=== PATIENT | female | born 1960 | race Caucasian/White ===

== ENCOUNTER 2021-08-26 11:35 | Emergency (ER) | payer OTHER, SELFPAY ==
--- NOTE | ~2021-08-26 | XR_ITS ---
EXAMINATION: XR chest 2V DATE: 08/26/2021 12:35 INDICATION: Cough, COVID 19 positive TECHNIQUE: PA and lateral views of the chest are obtained. COMPARISON: None available FINDINGS: There are minimal airspace opacities of the lung bases. There is no pleural effusion or pne umothorax. The cardiomediastinal silhouette is normal. There is moderate thoracic spondylosis. IMPRESSION: 1. Minimal bibasilar airspace opacities, consistent with atelectasis versus pneumonia. Reviewed, dictated and finalized at location [facility]. [facility] [employer] IMPRESSION: 1. Minimal bibasilar airspace opacities, consistent with atelectasis versus pne umonia.
[2021-08-26 11:44] VITALS: BP 129/72; PULSE 76; RESP 14; TEMP 36.1; O2SAT 99
--- NOTE | 2021-08-26 12:21 | ED.GENADULT ---
HPI - General Adult General Chief complaint: Upper Respiratory Infection Stated complaint: tested positive covid needs checked Time Seen by Provider: 08/26/21 12:22 Source: patient Mode of arrival: ambulatory Limitations: no limitations History of Present Illness HPI narrative: 61-year-old female patient presents to the [facility] with complaints of some chest pain when she takes a deep breath and when coughing for the past 2 to 3 days. Patient was diagnosed with Covid a week ago and started having symptoms 9 days ago. Tomorrow is her last day of quarantine. Patient states she is just been taking some [id number] medication for cough. Does have history of lupus but states she is in remission. Patient states she is not vaccinated against Covid. Related Data Home Medications Medication Instructions Recorded Confirmed ergocalciferol (vitamin D2) 1,250 mcg PO WEEKLY 08/26/21 08/26/21 [Vitamin D2] valacyclovir 1,000 mg PO DAILY PRN 08/26/21 08/26/21 Allergies Allergy/AdvReac Type Severity Reaction Status Date / Time Sulfa (Sulfonamide Allergy Rash Verified 08/26/21 11:54 Antibiotics) Review of Systems Review of Systems: CONSTITUTIONAL: Denies fever, chills, or sweats. EYES: Denies visual changes, redness, or discharge. ENT: Denies rhinorrhea, congestion, sore throat, or otalgia. CARDIOVASCULAR: Denies chest pain, palpitations, or edema. RESPIRATORY: Positive nonproductive cough, denies dyspnea. Positive chest pain midsternal when taking a breath in or when coughing. GASTROINTESTINAL: Denies abdominal pain, nausea, vomiting, or diarrhea. GENITOURINARY: Denies dysuria or hematuria. SKIN: Denies rash or itching. MUSCULOSKELETAL: Denies back pain, joint pain, or myalgia. NEUROLOGIC: Denies headache, numbness, or weakness. PSYCHIATRIC: Denies anxiety or depression. [facility] Past Medical History Medical History (Updated 08/26/21 @ 12:49 by OJSE Sal) Lupus Surgical History Surgical History (Updated 08/26/21 @ 12:23 by JOSE Sal) H/O: hysterectomy History of bunionectomy History of tonsillectomy Comments At the time of my signature I agree with nursing past medical history, surgical, social, and family history. There is no relevant family history pertinent to the presenting complaint. Exam Narrative: GENERAL: Well-appearing, well-nourished, and in no acute distress. HEAD: Normocephalic, atraumatic. EYES: PERRLA and EOMI. ENT: Nares clear, no rhinorrhea or epistaxis. Mucous membranes moist. NECK: Supple. No lymphadenopathy CHEST: Clear to auscultation. No respiratory distress. Patient able talk clear complete sentences. HEART: Regular rate and rhythm. No murmur heard. Normal peripheral pulses. ABDOMEN: Soft, nontender, nondistended, normal active bowel sounds. EXTREMITIES: Normal range of motion. No edema. SKIN: Warm, dry, no rash. NEURO: No focal deficits. Alert and oriented x3. Course Reevaluation(s) Reevaluation #1: Reevaluated patient notified her that her x-ray is suggestive of beginnings of Covid pneumonia. Discussed with her that typically because Covid pneumonia is caused by a virus we do not treat this with antibiotics. And the fact that she does not having severe symptoms is reassuring. We will discharge her home with a course of oral steroids for 10 days, and inhaler and Tessalon Perles to help with the coughing. Discussed with patient that I would recommend that she continue to watch her symptoms if her symptoms worsen or she develops fever I highly recommend that she follow-up with either her primary doctor or go to the ER. Patient verbalized understanding of this denies any other questions or concerns at this time Date: 08/26/21 Time: 12:52 Vital Signs Vital signs: Vital Signs Temperature 36.1 C L 08/26/21 11:44 Pulse Rate 76 08/26/21 11:44 Respiratory Rate 14 08/26/21 11:44 Blood Pressure 129/72 08/26/21 11:44 Pulse Oximetry 99 08/26/21 11:4
== END 2021-08-26 13:03 | disposition home or self-care (01) ==
PROVIDERS: Emergency Provider Nurse Practitioner Family
DX: U07.1 COVID-19 (principal); J12.82 Pneumonia due to coronavirus disease 2019
CPT/HCPCS: 71046; 99213; G0463